=== PATIENT | female | born 1990 | race Hispanic/Latino ===

== ENCOUNTER 2021-01-31 03:33 | Emergency (ER) | payer SELFPAY ==
[2021-01-31] MEDS ORDERED: LORAZEPAM 1 MG TABLET ONE (04:43)
[2021-01-31 05:18] LABS: Arterial Blood Carboxyhemoglob 1.1 % (0-1.5); Blood Gas Oxyhemoglobin 92.3 % (94-97); Blood O2 Saturation 94.3 % (92-98.5)
[2021-01-31 05:50] LABS: Urine Blood Negative (Negative); Urine Glucose Negative (Negative); Urine Protein Negative (Negative); Urine Specific Gravity 1.015 (1.005-1.030); Urine pH 5.5 (5.0-7.0)
[2021-01-31 06:01] LABS: Absolute Lymphocytes (CBC) 2.5 K/uL (0.7-4.9); Basophils % 0.9 % (0-1.3); Hematocrit 39.1 % (36.0-45.0); Lymphocytes % 23.3 % (15.3-44.8); MPV 7.3 fL (7.6-11.3); RBC Red Blood Cell Count 4.76 M/uL (3.86-4.86)
[2021-01-31 06:07] LABS: Urine Specific Gravity/Preg 1.015 (1.005-1.030)
[2021-01-31 06:11] LABS: Barbiturates NEGATIVE (NEGATIVE); Benzodiazepines NEGATIVE (NEGATIVE); Cocaine NEGATIVE (NEGATIVE); METHAMPHETAM NEGATIVE (NEGATIVE); Methadone NEGATIVE (NEGATIVE); Opiates NEGATIVE (NEGATIVE); Phencyclidine NEGATIVE (NEGATIVE); THC Cannibis NEGATIVE (NEGATIVE)
[2021-01-31 06:17] LABS: ALT/SGPT 23 U/L (12-78); AST/SGOT 10 U/L (15-37); Albumin 3.8 g/dL (3.4-5.0); Alkaline Phosphatase 92 U/L (45-117); BUN Blood Urea Nitrogen 12 mg/dL (7-18); Bicarbonate 23 mmol/L (21-32); Bilirubin Total 0.4 mg/dL (0.2-1.0); Glucose Level 92 mg/dL (74-106); Potassium 3.4 mmol/L (3.5-5.1); Sodium Level 139 mmol/L (136-145); Troponin (Emerg Dept Use Only) < 0.02 ng/mL (0.0-0.045)
--- NOTE | 2021-01-31 07:13 | RAD REPORT ---
EXAM DESCRIPTION: CT - Chest For Pe Angio - 01/31/2021 6:55 am CLINICAL HISTORY: Chest pain;Dyspnea COMPARISON: Chest Single View dated 01/31/2021 TECHNIQUE: Dynamically enhanced 3 mm thick images of the chest were obtained during administration o f approximately 150mL Isovue 370 IV contrast. Coronal and oblique MIP reconstruction images were gene rated and reviewed. Exam utilizes a protocol to evaluate the pulmonary arterial tree. All CT scans are performed using dose optimization technique as appropriate and may include automated exposure control or mA/KV adjustment according to patient size. FINDINGS: No pulmonary emboli are identified. The aorta as imaged shows no acute or suspicious finding. No pericardial thickening or effusion. No focal mass or consolidation. Interstitial markings are slightly prominent 8 mild edema or infiltra te would be possible. There is some minimal posterior lung field ground-glass opacities that are favo red to be atelectasis rather than alveolar edema or infiltrate. No pleural effusion or pleural thicke she. No mediastinal or hilar suspicious masses. No chest wall masses or abnormal axillary lymphadenopathy. IMPRESSION: No pulmonary emboli identified. No focal lung parenchymal process identified.Prominence of the interstitial pattern could indicate a mild interstitial edema or infiltrate. Posterior lung field airspace opacities are favored to be atelectasis rather than edema or infiltrate .
--- NOTE | 2021-01-31 07:14 | RAD REPORT ---
EXAM DESCRIPTION: RAD - Chest Single View - 01/31/2021 4:15 am CLINICAL HISTORY: CHEST PAIN COMPARISON: November 2016 TECHNIQUE: AP portable chest image was obtained 01/31/2021 4:15 am . FINDINGS: Lung volumes are very low accentuating the baseline pattern. A mild edema or interstitial infiltrate could be masked. No focal mass or consolidation identifiable. Heart and vasculature are no rmal. No measurable pleural effusion and no pneumothorax. No acute bony abnormality seen. No acute ao rtic findings suspected. IMPRESSION: No acute cardiopulmonary process. Low lung volumes could mask a mild interstitial edema or infiltrate.
--- NOTE | 2021-01-31 07:58 | EKG ---
Test Date: 2021-01-31 Test Time: 04:18:45 Sandblast Or Shotblast Equipment Tender: ABBEY MEASUREMENT RESULTS: Intervals: Rate: 86 [place]: 122 QRSD: 82 QT: 364 QTc: 435 [place]: P: 13 [place]: 122 QRS: 57 T: 35 INTERPRETIVE STATEMENTS: Normal sinus rhythm Normal ECG Compared to ECG 12/05/2016 16:18:02 No significant changes Electronically Signed On 01-31-21 07:57:29 CDT by Shalom Carmen
[2021-01-31] MEDS ORDERED: POTASSIUM 25 MEQ EFFERV TAB ONE (08:13)
--- NOTE | 2021-01-31 17:55 | ER ---
Nurse's Notes [facility] Name: Gilda Berman Age: 30 yrs Sex: Female : 1990 Arrival Date: 01/31/2021 Time: 03:38 Bed 8 Private MD: Tom North R Diagnosis: Adjustment disorder with anxiety;Hyperventilation Presentation: 01/31 04:06 Chief complaint: Patient states: was sitting on couch and then started having an em anxiety attack that started at 0300, reports chest pain, arm and leg numbness, and difficulty breathing, hx of anxiety. Coronavirus screen: Client denies travel out of the [place] in the last 14 days. Ebola Screen: Patient negative for fever greater than or equal to 101.5 degrees Fahrenheit, and additional compatible Ebola Virus Disease symptoms Patient denies exposure to infectious person. Patient denies travel to an Ebola-affected area in the 21 days before illness onset. No symptoms or risks identified at this time. Initial Sepsis Screen: Does the patient meet any 2 criteria? HR > 90 bpm. No. Patient's initial sepsis screen is negative. Does the patient have a suspected source of infection? No. Patient's initial sepsis screen is negative. Risk Assessment: Do you want to hurt yourself or someone else? Patient reports no desire to harm self or others. Onset of symptoms was January 31, 2021. 04:06 Method Of Arrival: Wheelchair em 04:06 Acuity: KVNG 3 em Historical: - Allergies: 04:07 No Known Allergies; em - PMHx: 04:07 Migraines; em - PSHx: 04:07 section; Cholecystectomy; em - Immunization history:: Adult Immunizations up to date. - Social history:: Smoking status: Patient denies any tobacco usage or history of. - Family history:: not pertinent. Screenin:33 Abuse screen: Denies threats or abuse. Nutritional screening: No deficits noted. ea Tuberculosis screening: No symptoms or risk factors identified. Fall Risk None identified. Assessment: 04:35 General: Appears uncomfortable, Behavior is anxious, restless. Pain: Complains of pain ea in chest Pain does not radiate. Neuro: Level of Consciousness is awake, alert, obeys commands, Oriented to person, place, time. Cardiovascular: Patient's skin is warm and dry. Respiratory: Airway is patent Respiratory effort is even, unlabored, Respiratory pattern is regular, symmetrical. Derm: Skin is pink, warm \T\ dry. 06:27 Pain: Pain began suddenly. bs2 08:03 Reassessment: Patient appears in no apparent distress at this time. No changes from sv previously documented assessment. Patient and/or family updated on plan of care and expected duration. Pain level reassessed. Patient is alert, oriented x 3, equal unlabored respirations, skin warm/dry/pink. Vital Signs: 04:06 BP 141 / 104; Pulse 93; Resp 22; Temp 98.0; Pulse Ox 99% on R/A; Weight 81.65 kg; em Height 5 ft. 0 in. (152.40 cm); 05:00 BP 110 / 81; Pulse 81; Resp 18; Pulse Ox 98% on R/A; mt 07:38 BP 106 / 73; Pulse 85; Resp 16; Pulse Ox 97% on R/A; mt 04:06 Body Mass Index 35.15 (81.65 kg, 152.40 cm) em ED Course: 03:38 Patient arrived in ED. es 03:39 Tom North MD is Private Physician. es 04:02 Ted Calderon MD is Attending Physician. bette 04:06 Orin Chapin, RN is Primary Nurse. bs2 04:07 Triage completed. em 04:07 Arm band placed on. em 04:14 Chest Single View XRAY In Process Unspecified. EDMS 04:36 Patient has correct armband on for positive identification. Bed in low position. Call ea light in reach. secured entrance monitor on. Pulse ox on. 05:04 Les Wade MD is Referral Physician. bette 05:40 Inserted saline lock: 22 gauge in right antecubital area, using aseptic technique. ds4 Blood collected. 05:52 UDS Sent. ds4 06:15 Ted Dorsey PA is PHCP. cp 06:27 Patient maintains SpO2 saturation greater than 95% on room air. bs2 06:27 No provider procedures requiring assistance completed. bs2 06:53 Primary Nurse role handed off by Orin Chapin, RN mw2 06:55 CT Chest For PE Angio In Process Unspecified. EDMS 07:10 Morelia Mejia, URIAH is Primary Nurse. ph 07:36 Les Wade MD is Referral Physician. cp 07:48 CBC with Diff Sent. sv 07:48 Comprehensive Metabolic Panel Sent. sv 07:48 Troponin (emerg Dept Use Only) Sent. sv 08:02 IV discontinued, intact, bleeding controlled, No redness/swelling at site. Pressure sv dressing applied. Administered Medications: 04:30 Drug: Ativan (LORazepam) 2 mg Route: PO; bs2 08:02 Drug: Potassium Effervescent Tablet 50 mEq Route: PO; sv 08:02 Follow up: Response: Medication administered at discharge. sv Outcome: 05:04 Discharge ordered by MD. [facility] 07:36 Discharge ordered by MD. cp 08:02 Discharged to home ambulatory, with family. sv 08:02 Condition: stable 08:02 Discharge instructions given to patient, Instructed on discharge instructions, follow up and referral plans. medication usage, Demonstrated understanding of instructions, follow-up care, medications, Prescriptions given X 1. 08:03 Patient left the ED. sv Signatures: Dispatcher [employer] Rosita Jaquez, RN Ted Starr MD MD cha Salyer, Edna es Munoz, Edgar RN RN John Rowe ds4 Morelai Mejia RN Ted Gaitan ph, Connie Ruiz cp, mt, Elena RN Pamela Liocna ea 2 Orin Chapin RN RN bs2
--- NOTE | 2021-01-31 17:56 | EDPHYS ---
Physician Documentation [facility] Name: Gilda Berman Age: 30 yrs Sex: Female : 1990 Arrival Date: 01/31/2021 Time: 03:38 Bed 8 Private MD: Tom North R ED Physician Ted Calderon HPI: 01/31 04:12 This 30 yrs old Female presents to ER via Wheelchair with complaints of [facility] Anxiety, Chest Pain, Numbness, OF LEGS, Breathing Difficulty. 04:12 The patient or guardian reports chest pain that is located primarily in the anterior [facility] chest wall, bilaterally. The pain does not radiate. Associated signs and symptoms: The patient has no apparent associated signs or symptoms. The chest pain is described as aching. Duration: The patient or guardian reports a single episode, that is still ongoing. Modifying factors: The symptoms are alleviated by nothing. the symptoms are aggravated by nothing. Severity of pain: At its worst the pain was mild in the emergency department the pain is unchanged. The patient has experienced similar episodes in the past, a few times. Historical: - Allergies: 04:07 No Known Allergies; em - PMHx: 04:07 Migraines; em - PSHx: 04:07 section; Cholecystectomy; em - Immunization history:: Adult Immunizations up to date. - Social history:: Smoking status: Patient denies any tobacco usage or history of. - Family history:: not pertinent. ROS: 04:12 Constitutional: Negative for fever, chills, and weight loss, Eyes: Negative for injury, bette pain, redness, and discharge, ENT: Negative for injury, pain, and discharge, Neck: Negative for injury, pain, and swelling, Cardiovascular: Negative for chest pain, palpitations, and edema, Respiratory: Negative for shortness of breath, cough, wheezing, and pleuritic chest pain, Abdomen/GI: Negative for abdominal pain, nausea, vomiting, diarrhea, and constipation, Back: Negative for injury and pain, : Negative for injury, bleeding, discharge, and swelling, MS/Extremity: Negative for injury and deformity, Skin: Negative for injury, rash, and discoloration, Neuro: Negative for headache, weakness, numbness, tingling, and seizure, Allergy/Immunology: Negative for hives, rash, and allergies, Endocrine: Negative for neck swelling, polydipsia, polyuria, polyphagia, and marked weight changes, Hematologic/Lymphatic: Negative for swollen nodes, abnormal bleeding, and unusual bruising. 04:12 Psych: Positive for anxiety. Exam: 04:12 Constitutional: This is a well developed, well nourished patient who is awake, alert, bette and in no acute distress. Head/Face: Normocephalic, atraumatic. Eyes: Pupils equal round and reactive to light, extra-ocular motions intact. Lids and lashes normal. Conjunctiva and sclera are non-icteric and not injected. Cornea within normal limits. Periorbital areas with no swelling, redness, or edema. ENT: Nares patent. No nasal discharge, no septal abnormalities noted. Tympanic membranes are normal and external auditory canals are clear. Oropharynx with no redness, swelling, or masses, exudates, or evidence of obstruction, uvula midline. Mucous membranes moist. Neck: Trachea midline, no thyromegaly or masses palpated, and no cervical lymphadenopathy. Supple, full range of motion without nuchal rigidity, or vertebral point tenderness. No Meningismus. Chest/axilla: Normal chest wall appearance and motion. Nontender with no deformity. No lesions are appreciated. Cardiovascular: Regular rate and rhythm with a normal S1 and S2. No gallops, murmurs, or rubs. Normal PMI, no JVD. No pulse deficits. Respiratory: Lungs have equal breath sounds bilaterally, clear to auscultation and percussion. No rales, rhonchi or wheezes noted. No increased work of breathing, no retractions or nasal flaring. Abdomen/GI: Soft, non-tender, with normal bowel sounds. No distension or tympany. No guarding or rebound. No evidence of tenderness throughout. Back: No spinal tenderness. No costovertebral tenderness. Full range of motion. Skin: Warm, dry with normal turgor. Normal color with no rashes, no lesions, and no evidence of cellulitis. MS/ Extremity: Pulses equal, no cyanosis. Neurovascular intact. Full, normal range of motion. Neuro: Awake and alert, GCS 15, oriented to person, place, time, and situation. Cranial nerves II-XII grossly intact. Motor strength 5/5 in all extremities. Sensory grossly intact. Cerebellar exam normal. Normal gait. Psych: Awake, alert, with orientation to person, place and time. Behavior, mood, and affect are within normal limits. 04:12 Musculoskeletal/extremity: Extremities: all appear grossly normal, with no appreciated pain with palpation, ROM: no acute changes, intact in all extremities, Circulation is intact in all extremities. Sensation intact. Compartment Syndrome exam of affected extremity: is normal. DVT Exam: No signs of deep vein thrombosis. no pain, no swelling, no tenderness, negative Homans' sign noted on exam, no appreciated bluish discoloration, no erythema, no increased warmth. 04:19 ECG was reviewed by the Attending Physician. bette Vital Signs: 04:06 BP 141 / 104; Pulse 93; Resp 22; Temp 98.0; Pulse Ox 99% on R/A; Weight 81.65 kg; em Height 5 ft. 0 in. (152.40 cm); 05:00 BP 110 / 81; Pulse 81; Resp 18; Pulse Ox 98% on R/A; mt 07:38 BP 106 / 73; Pulse 85; Resp 16; Pulse Ox 97% on R/A; mt 04:06 Body Mass Index 35.15 (81.65 kg, 152.40 cm) em MDM: 04:03 Patient medically screened. bette 04:20 Differential diagnosis: abnormal EKG, acute myocardial infarction, anxiety, chest wall bette pain, cholecystitis, Cholelithiasis costochondritis, esophagitis, gastritis, hiatal hernia, myocarditis, pneumonia, pulmonary embolus, unstable angina. HEART Score: Total Score = 0. The patient's deep vein thrombosis risk score was calculated as follows: Total Score: 0. This patient was found to be at low risk for a deep vein thrombosis by using the Well's assessment criteria. The patient's pulmonary embolism risk score was calculated as follows: Total Score: 0-2 points. This patient was found to be at low risk for a pulmonary embolism by using the Well's assessment criteria. LEOBARDO Risk Score: TOTAL SCORE = 0. Data reviewed: vital signs, nurses notes, lab test result(s), EKG, radiologic studies, plain films. Data interpreted: night monitor: rate is 93 beats/min, rhythm is regular, Pulse oximetry: on room air. Test interpretation: by ED physician or midlevel provider: ECG, plain radiologic studies. Counseling: I had a detailed discussion with the patient and/or guardian regarding: the historical points, exam findings, and any diagnostic results supporting the discharge/admit diagnosis, the presence of at least one elevated blood pressure reading (>120/80) during this emergency department visit, lab results, radiology results, the need for outpatient follow up, for definitive care, a family practitioner, a psychiatrist. 01/31 04:03 Order name: UDS; Complete Time: 06:35 [facility] 01/31 04:24 Order name: ABG; Complete Time: 05:40 [facility] 01/31 05:22 Order name: Troponin (emerg Dept Use Only) [facility] 01/31 05:22 Order name: CBC with Diff [facility] 01/31 05:22 Order name: Comprehensive Metabolic Panel [facility] 01/31 05:23 Order name: Troponin (Emerg Dept Use Only); Complete Time: 06:35 [facility] 01/31 04:03 Order name: Chest Single View XRAY; Complete Time: 07:20 [facility] 01/31 05:22 Order name: CT Chest For PE Angio; Complete Time: 07:20 [facility] 01/31 05:23 Order name: Comprehensive Metabolic Panel; Complete Time: 06:35 [facility] 01/31 06:35 Interpretation: Normal except: K 3.4; CL 108; GFR 86; AST 10; GLOB 4.2; A/G 0.9. cp 01/31 05:23 Order name: CBC with Automated Diff; Complete Time: 06:35 [facility] 01/31 06:35 Interpretation: Normal except: MCV 82.2; MCH 27.9; MPV 7.3. cp 01/31 05:50 Order name: Urine Dipstick-Ancillary; Complete Time: 05:55 [facility] 01/31 05:52 Order name: Urine --Ancillary (enter results); Complete Time: 06:35 ds4 01/31 04:03 Order name: EKG; Complete Time: 04:04 [facility] 01/31 04:03 Order name: EKG - Nurse/Tech; Complete Time: 05:51 [facility] 01/31 04:03 Order name: Urine Dipstick-Ancillary (obtain specimen); Complete Time: 05:51 [facility] 01/31 04:03 Order name: Urine Test (obtain specimen); Complete Time: 05:51 [facility] 01/31 07:25 Order name: Vital Signs: please update; Complete Time: 07:38 cp EC:19 Rate is 86 beats/min. Rhythm is regular. QRS [place] is Normal. [place] interval is normal. QRS bette interval is normal. QT interval is normal. No Q waves. T waves are Normal. No ST changes noted. Clinical impression: NSR w/ Non-specific ST/T Changes and No evidence of ischemia. Interpreted by me. Reviewed by me. Administered Medications: 04:30 Drug: Ativan (LORazepam) 2 mg Route: PO; bs2 08:02 Drug: Potassium Effervescent Tablet 50 mEq Route: PO; sv 08:02 Follow up: Response: Medication administered at discharge. sv Disposition Summary: 01/31/21 07:36 Discharge Ordered Location: Home(01/31/21 07:36) cp Problem: new(01/31/21 07:36) cp Symptoms: have improved(01/31/21 07:36) cp Condition: Stable(01/31/21 07:36) cp Diagnosis - Adjustment disorder with anxiety(01/31/21 07:36) cp - Hyperventilation(01/31/21 07:36) cp Followup: bette - With: Private Physician - When: 2 - 3 days - Reason: Recheck today's complaints, Continuance of care, Re-evaluation by your physician Followup: bette - With: - When: 2 - 3 days - Reason: Recheck today's complaints, Re-evaluation by your physician Discharge Instructions: - Discharge Summary Sheet bette - Adjustment Disorder, Adult bette - Panic Attack bette - Hyperventilation bette - Managing Anxiety, Adult bette Forms: - Medication Reconciliation Form cp - Thank You Letter cp - Antibiotic Education cp - Prescription Opioid Use cp Prescriptions: - Hydroxyzine HCl 25 mg Oral Tablet - take 1 tablet by ORAL route every 6 hours As needed; 30 tablet; Refills: 0, bette Product Selection Permitted Signatures: Dispatcher [employer] Rosita Jaquez RN RN sv Anderson, Corey, MD MD cha Munoz, Edgar, RN RN em Page, Corey, PA PA cp Smith, Bridget RN RN bs2 Corrections: (The following items were deleted from the chart) 05:24 05:04 Home bette bette 05:24 05:04 new bette bette 05:24 05:04 have improved bette bette 05:24 05:04 Stable bette bette 05:24 05:04 Adjustment disorder with anxiety bette bette 05:24 05:04 Hyperventilation bette amos
[2021-02-01 19:36] VITALS: TEMP 98
[2021-02-01 19:39] VITALS: BP 106/73; O2SAT 97
== END 2021-01-31 08:03 | disposition home or self-care (01) ==
LOC: ER 03:33
DX: F43.22 Adjustment disorder with anxiety (principal); R06.4 Hyperventilation; Z20.822 Contact with and (suspected) exposure to COVID-19
CPT/HCPCS: 36415; 71045; 71275; 80053; 80307; 81003; 81025; 82805; 84484; 85025; 93005; Q9967; U0003

== ENCOUNTER 2023-03-01 18:09 | Emergency (ER) | payer SELFPAY ==
--- OUTSIDE RECORDS SUMMARY | 2023-03-01 18:18 | XMS REPORT | Continuity of Care Document ---
:1990 Author Organization [facility] t Address [address] [place] [address] [place] [id number] Care Team Providers Name Role Phone PCP, PATIENT DOES NOT HAVE A Primary Care Physician Unavaila Ntae Vo Attending Clinician ROSY CRANDALL Attending Clinician Unavailable Rosy Sweet Attending Clinician Qiana Handley MD Attending Clinician Doctor Unassigned, [place] Attending Clinician Unavailable VISIT, NURSE TMO Attending Clinician Unavailable Payers Payer Name Policy Type Policy Number Effective Date Expiration Date S [facility] - [id number] 2021 00:00:00 OUT OF STATE Problems Condition Condition Condition Status Onset Resolution Last Treating Co mments Source Name Details Category Date Date Treatment Clinician Date Morbid Morbid Problem Active 2022-11-16 Mem oridillan obesity obesity 01:29:27 l (disorder) (disorder) Brian velasco Active [facility] No known No known Disease Unive active active ity of problems problems [facility] Patient Patient Problem Resolve 2006-072022-03-01 2022-03-01 Memoria currently currently d 08-02 22:32:36 22:32:36 l 00:00: Evelio will (finding) (finding) 00 Resolved 06/02/2007 Problem 03/01/2022 [facility] History of Past Illness Condition Condition Condition Status Onset Resolution Last Treating Co mments Source Name Details Category Date Date Treatment Clinician Date Abnormal Abnormal Diagnosis 2022-11-16 2022-11-16 Memoria uterine uterine 11-13 01:29:27 01:29:27 l bleeding bleeding 18:59: Evelio n (disorder) (disorder) 00 3 Diagnosis 11/16/2022 [facility] front desk person C Encounter Problem 2022-02-16 2022-02-16 Memoria for Encounter 02-13 03:12:30 03:12:30 l gynecologi for 18:46: Evelio will bernadette gynecologi 00 examinatio bernadette n examinatio (general) n (routine) (general) without (routine) abnormal without findings abnormal findings 02/13/2022 Medical Group Abnormal Abnormal Problem 2021-10-27 2021-10-27 Memoria uterine uterine 10-24 03:00:02 03:00:02 l and and 18:19: Mike vaginal vaginal 00 bleeding, bleeding, unspecifie unspecifie d d 10/24/2021 10/27/2021 [facility] Pelvic and Pelvic Problem 2018-2018-11-29 2018-11-29 Memoria perineal and 5 22:11:09 22:11:09 l pain perineal 15:39: [place] pain 00 11/27/2018 9 [facility] Allergies, Adverse Reactions, Alerts Allergy Allergy Status Severity Reaction(s) Onset Inactive Treating Comm ents Source Name Type Date Date Clinician NO KNOWN Drug Active Univers ALLERGIE Class ity of S [facility] Social History Social Habit Start Date Stop Date Quantity Comments Source Exposure to Not sure [facility] SARS-CoV-2 [facility] (event) Branch Tobacco use and 2021-05-22 2021-05-22 Never used Universit y of exposure 00:00:00 00:00:00 [facility] Alcohol intake 2021-05-22 2021-05-22 Ex-drinker University 00:00:00 00:00:00 (finding) [facility] Sex Assigned At [birth year] Universit y of 00:00:00 00:00:00 [facility] Smoking Status Start Date Stop Date Source Unknown if ever smoked [facility] Tobacco smoking status [facility] Medications Ordered Filled Start Stop Current Ordering Indication Dosage Frequency Signature Comments Components Source Medication Medication Date Date Medication? Clinician (SIG) Name Name Ella Yes 0.35 mg = Mem oria 0.35 mg 5-09 1 tab, PO, l oral tablet 19:30: Daily, # He rmann 00 90 tab, 3 Refill(s), Pharmacy: [facility] Pharm[facility] [place], 149.86, cm, 02/13/22 13:46:00 CDT, Height, 79.545, kg, 02/13/22 13:46:00 CDT, Weight busPIRone Yes 0 Memoria 10 mg oral 5-08 Refill(s) l tablet 18:49: [place] 00 amitriptyli Yes 0 Memori a ne 25 mg 5-08 Refill(s) l oral tablet 18:49: Evelio n 00 propranolol Yes 0 Memori a 40 mg oral 5-08 Refill(s) l tablet 18:49: [place] 00 Slynd 4 mg 2021-1 Yes 4 mg, PO, Me moria oral tablet 1-09 Daily, # l 14:37: 84 tab, 3 Mike 00 Refill(s), Pharmacy: [facility] Pharmacy, 149.86, cm, 02/13/22 13:46:00 CDT, Height, 79.545, kg, 02/13/22 13:46:00 CDT, Weight Slynd 4 mg 2021-0 Yes 4 mg, PO, Me moria oral tablet 8-09 Daily, # l 18:59: 84 tab, 3 [place] 00 Refill(s), Pharmacy: [facility] Pharmacy, 149.86, cm, 02/13/22 13:46:00 CDT, Height, 79.545, kg, 02/13/22 13:46:00 CDT, Weight Sronyx oral 2021-0 Yes 1 tab, PO, Memoria tablet 4-19 Daily, # l 18:31: 84 tab, 3 [place] 00 Refill(s), Pharmacy: [facility] Pharm[facility] [place], 149.86, cm, 10/24/21 13:08:00 CDT, Height, 80, kg, 10/24/21 13:08:00 CDT, Weight tyesha 2020-07- No [id number] 5mL Take 5 mL Univers mine-pseudo 07-22 by mouth 4 i ty of ephedrine-D 00:00: 05:59 (four) Abraham as M (BROMFED 00 :00 times Medical DM) 2-30-10 daily as Bran ch mg/5 mL needed for syrup Cold symptoms for up to 10 days. Vital Signs Vital Name Observation Time Observation Value Comments Source Systolic blood 2021-05-22 20:05:00 109 mm[Hg] Univer sity of [facility] Diastolic blood 2021-05-22 20:05:00 74 mm[Hg] Unive rsity [facility] Heart rate 2021-05-22 20:05:00 86 /min [facility] Body temperature 2021-05-22 20:05:00 36.89 Arielle [facility] rate 2021-05-22 20:05:00 19 /min [facility] Body height 2021-05-22 20:05:00 149.9 cm [facility] Body weight 2021-05-22 20:05:00 81.647 kg [facility] BMI 2021-05-22 20:05:00 36.36 kg/m2 [facility] Oxygen saturation in 2021-05-22 20:05:00 99 /min [facility] Arterial blood by [facility] Pulse oximetry [facility] Heart Rate 2022-02-13 18:46:00 [facility] Systolic (mm Hg) 2022-02-13 18:46:00 Howardkristy Mckeon Diastolic (mm Hg) 2022-02-13 18:46:00 [facility] orial [place] Height 2022-02-13 18:46:00 149.86 cm [facility] Weight 2022-02-13 18:46:00 [facility] BMI Calculated 2022-02-13 18:46:00 Amy al [place] Heart Rate 2021-10-24 18:08:00 [facility] Height 2021-10-24 18:08:00 149.86 cm [facility] Mike Weight 2021-10-24 18:08:00 [facility] [place] BMI Calculated 2021-10-24 18:08:00 Amy Hooks BMI Calculated 2018-11-27 15:30:00 Pritihumberto Hooks Weight 2018-11-27 15:30:00 Nataliia Mckeon Heart Rate 2018-11-27 15:30:00 Nataliia [place] Systolic (mm Hg) 2018-11-27 15:30:00 Howard Floresann Diastolic (mm Hg) 2018-11-27 15:30:00 [facility] orial [place] Height 2018-11-27 15:30:00 149.86 cm [facility] Mike Procedures Procedure Date / Time Performing Clinician Source Performed Liquid based cervical 2022-02-13 05:00:00 Amy lionel Mike cytology screening ASSIGNMENT OF BENEFITS 2021-05-22 19:47:54 Doctor Unassigned, Un [facility] Bilateral tubal ligation 2015-07-08 00:00:00 [facility] orial [place] Caesarean section 2015-07-08 00:00:00 [facility] ermann Cholecystectomy [facility] Encounters Start End Encounter Admission Attending Care Care Encounter Source Date/Time Date/Time Type Type Clinicians Facility Department ID 2022-11-13 2022-11-13 Ambulatory IE [facility] front desk person [id number] Memoria 18:45:00 18:45:00 Pre-Reg [facility] 07 herminia FloresMike 2022-11-13 2022-11-13 Ambulatory IE [facility] front desk person [id number] Memoria 18:30:00 18:30:00 Pre-Reg [facility] 06 herminia Mckeon 2022-11-13 2022-11-13 Outpatient IE IE [id number] Memoria 13:45:00 13:45:00 08 herminia Mckeon 2022-11-13 2022-11-13 Outpatient IE IE [id number] Memoria 13:45:00 13:45:00 07 herminia Mckeon 2022-11-13 2022-11-13 Outpatient Mateo [facility] [id number] 13:45:00 13:45:00 Nate 07 Robledo 2022-11-13 2022-11-13 Outpatient MHIE IE [id number] Memoria 13:30:00 13:30:00 06 herminia Mckeon 2022-11-13 2022-11-13 Outpatient Vine, [facility] MG [id number] 13:30:00 13:30:00 Nathanaelryporsha Ciara RaglandRobledo 2022-07-12 2022-07-12 Ambulatory MHIE MG front desk person [id number] Memoria 19:00:00 19:00:00 Pre-Reg [facility] 05 herminia Mckeon 2022-07-12 2022-07-12 Outpatient MHIE MHIE [id number] Memoria 13:00:00 13:00:00 05 herminia Mckeon 2022-07-12 2022-07-12 Outpatient Vine, [facility] MG [id number] 13:00:00 13:00:00 Nathanaelryporsha Winter RaglandRobledo 2022-02-26 2022-02-27 Between nullFlavo MG front desk person [id number] Memoria 16:27:20 16:27:20 Visit r [facility] 05 herminia Mckeon 2022-02-26 2022-02-27 Outpatient [facility] MG [id number] 11:27:20 11:27:20 05 2022-02-13 2022-02-14 Outpatient nullFlavo MG front desk person [id number] Memoria 18:45:00 04:59:59 r [facility] 04 herminia Mckeon 2022-02-13 2022-02-13 Outpatient Vine, MG MG [id number] 13:45:00 23:59:59 Nathanaelryporsha Madhav Robledo 2022-02-13 2022-02-13 Outpatient MHIE IE [id number] Memoria 13:45:00 13:45:00 04 herminia Mckeon 2022-01-22 2022-01-23 Between nullFlavo MG front desk person [id number] Memoria 22:29:19 22:29:19 Visit r [facility] 04 herminia Mckeon 2022-01-22 2022-01-23 Outpatient [facility] MG [id number] 17:29:19 17:29:19 04 2021-10-30 2021-10-31 Between nullFlavo [facility] front desk person [id number] Memoria 15:42:56 15:42:56 Visit r [facility] 03 herminia Mike 2021-10-30 2021-10-31 Outpatient [facility] MG [id number] 10:42:56 10:42:56 03 2021-10-24 2021-10-25 Outpatient nullFlavo MG front desk person [id number] Memoria 18:30:00 04:59:59 r [facility] 03 herminia Mckeon 2021-10-24 2021-10-24 Outpatient Mateo, MG MG [id number] 13:30:00 23:59:59 Gerilynn 03 Robledo 2021-10-24 2021-10-24 Outpatient MHIE IE [id number] Memoria 13:30:00 13:30:00 03 herminia Mckeon 2021-05-22 2021-05-22 [facility] [id number] Univers 14:00:00 15:08:20 OMAYEMI ity of [facility] 2021-05-22 2021-05-22 [facility] [id number] Univers 13:49:03 15:08:20 Care [facility] [id number] ity of [place] [id number] Abraham as KAMALJIT?BLEA [id number] [address] MEDICAL OFFICE BUILDING 2021-05-22 2021-05-22 Orders Doctor JUSTINE [id number] Univers 00:00:00 00:00:00 Only Unassigned, JENISE [id number] ity of [place] [facility] [id number] Abraham as [id number] [address] 2018-12-08 2018-12-08 Ambulatory nullFlavo MG PHOTOGRAPHY TEACHER 5 [id number] Memoria 19:00:00 19:00:00 Pre-Reg r [facility] 02 herminia Mckeon 2018-12-08 2018-12-08 Outpatient MHIE IE [id number] Memoria 14:00:00 14:00:00 02 herminia Mckeon 2018-12-08 2018-12-08 Outpatient VISIT, [facility] [id number] 14:00:00 14:00:00 NURSE TMO 02 2018-12-02 2018-12-03 Between nullFlavo [facility] PHOTOGRAPHY TEACHER [id number] Memoria 14:09:02 14:09:02 Visit r TM 02 herminia [place]Cl[place] 2018-12-02 2018-12-03 Outpatient [facility] [id number] 09:09:02 09:09:02 02 2018-11-27 2018-11-28 Outpatient nullFlavo [facility] PHOTOGRAPHY TEACHER 5 [id number] Memoria 15:15:00 04:59:59 r [facility] 01 herminia Mike 2018-11-27 2018-11-27 Outpatient Vine, [facility] [id number] 10:15:00 23:59:59 Gerisac 01 Meena 2018-11-27 2018-11-27 Outpatient [facility] [id number] Memoria 10:15:00 10:15:00 01 herminia Mike 2018-11-20 2018-11-20 Ambulatory nullFlavo [facility] PHOTOGRAPHY TEACHER 5 [id number] Memoria 18:15:00 18:15:00 Pre-Reg r [facility] 00 herminia Mike 2018-11-20 2018-11-20 Outpatient Vine, [facility] [id number] 13:15:00 13:15:00 Nate Robledo Results Test Description Test Time Test Comments Results Result Comments Source HEMATOLOGY 2021-10-24 18:35:00 Test Item Value Reference Range Interpretation Comme nts WBC X 10x3 (test code = WBC X 10x3) 8.7 3.8-10.8 [facility]UD[facility]FF1868-50-02 18:35:00 Test Item Value Reference Range Interpretation Comments RBC X 10x6 (test code = RBC X 10x6) 4.93 3.80-5.10 [facility] CenterFdidaycYOYSDIVIKH0513-91-41 18:35:00 Test Item Value Reference Range Interpretation Comments Hgb (test code = Hgb) 13.0 11.7-15.5 [facility] CenterLacbeojWFULQKTJDC2219-25-62 18:35:00 Test Item Value Reference Range Interpretation Comments Hct (test code = Hct) 40.4 35.0-45.0 [place] 130082-04-19 18:35:00 Test Item Value Reference Range Interpretation Comments MCV (test code = MCV) 81.9 80.0-100.0 [facility] CenterPjhzepaTJSDPFZMSZ2748-19-79 18:35:00 Test Item Value Reference Range Interpretation Comments MCH (test code = MCH) 26.4 pg 27.0-33.0 [facility] CenterKltohqaPVTFKXNCRO3250-91-52 18:35:00 Test Item Value Reference Range Interpretation Comments MCHC (test code = MCHC) 32.2 32.0-36.0 [place] 130082-04-19 18:35:00 Test Item Value Reference Range Interpretation Comments RDW (test code = RDW) 13.5 11.0-15.0 [place] 130082-04-19 18:35:00 Test Item Value Reference Range Interpretation Comments Platelet (test code = Platelet) 360 140-400 [facility] CenterXdycycvOKWBUAZOEL7009-84-07 18:35:00 Test Item Value Reference Range Interpretation Comments MPV (test code = MPV) 9.9 7.5-12.5 [place] 1300[address]-04-19 18:35:00 Test Item Value Reference Range Interpretation Comments Neutrophils # (test code = Neutrophils 5585 1163-9603 #) [facility] CenterQocdywuSZEFJVUNOY0589-50-91 18:35:00 Test Item Value Reference Range Interpretation Comments Lymphocytes # (test code = Lymphocytes 2549 850-3900 #) [facility] Cent[id number] 18:35:00 Test Item Value Reference Range Interpretation Comments Monocytes # (test code = Monocytes #) 426 200-950 [facility] CenterKvugytiYPGNIMKIPQ2401-53-34 18:35:00 Test Item Value Reference Range Interpretation Comments Eosinophils # (test code = Eosinophils 78 15-500 #) [facility] C[id number] 18:35:00 Test Item Value Reference Range Interpretation Comments Basophils # (test code 61 See_Comment [Aut omated message] The = Basophils #) system which generated this result tra nsmitted reference range : <=200. The reference r mando was not used to int erpret this result as normal/abnormal . [facility] CenterJluhmnfDQRGJWGBON9384-70-09 18:35:00 Test Item Value Reference Range Interpretation Comments Segs (test code = Segs) 64.2 [facility] CenterEfsymamHIHGFQSVPG2050-20-32 18:35:00 Test Item Value Reference Range Interpretation Comments Lymphocytes (test code = Lymphocytes) 29.3 [facility] CenterUbfpgtjPTWQAUXMSP6940-21-73 18:35:00 Test Item Value Reference Range Interpretation Comments Monocytes (test code = Monocytes) 4.9 [place] 1300[address]-04-19 18:35:00 Test Item Value Reference Range Interpretation Comments Eosinophils (test code = Eosinophils) 0.9 [place] [id number] 18:35:00 Test Item Value Reference Range Interpretation Comments Basophils (test code = Basophils) 0.7 [facility]
[2023-03-01] MEDS ORDERED: LORazepam 2 MG/ML VIAL ONE (18:33)
[2023-03-01] MEDS ORDERED: NA CHLORIDE 0.9% 1,000 ML ONE ×2 (18:45→20:49)
[2023-03-01 18:47] LABS: Absolute Lymphocytes (CBC) 4.9 K/uL (0.7-4.9); Hematocrit 37.2 % (36.0-45.0); Lymphocytes % 44.9 % (15.3-44.8); MCV 74.5 fL (80-100); MPV 7.8 fL (7.6-11.3); Platelets 434 thou/uL (152-406)
[2023-03-01 19:00] LABS: Potassium 3.2 mEq/L (3.5-5.1); Thyroid Stimulating Hormone 2.59 uIU/mL (0.358-3.740); Troponin High Sensitivity 3.4 pg/mL (<58.9)
--- NOTE | 2023-03-01 20:07 | RAD REPORT ---
EXAM DESCRIPTION: Miladys Single View03/01/2023 7:38 pm CLINICAL HISTORY: Chest pain COMPARISON: 2021 FINDINGS: The lungs appear clear of acute infiltrate. The heart is normal size IMPRESSION: No acute abnormalities displayed
[2023-03-01 20:45] LABS: Protime INR 1.05
[2023-03-01 20:53] LABS: Barbiturates NEGATIVE (NEGATIVE); Benzodiazepines NEGATIVE (NEGATIVE); Cocaine NEGATIVE (NEGATIVE); METHAMPHETAM NEGATIVE (NEGATIVE); Methadone NEGATIVE (NEGATIVE); Opiates NEGATIVE (NEGATIVE); Phencyclidine NEGATIVE (NEGATIVE); THC Cannibis NEGATIVE (NEGATIVE)
[2023-03-01 21:05] LABS: ALT/SGPT 17 U/L (13-56); AST/SGOT 8 U/L (15-37); Albumin 3.3 g/dL (3.4-5.0); Alkaline Phosphatase 78 U/L (45-117); Bilirubin Total 0.3 mg/dL (0.2-1.0); Protein, Total 6.8 g/dL (6.4-8.2)
[2023-03-01 21:07] LABS: Bilirubin Direct < 0.1 mg/dL (0-0.2); Bilirubin Indirect, Calculated ND mg/dL (0.2-0.8)
--- NOTE | 2023-03-01 21:25 | EDPHYS ---
Physician Documentation [facility] Name: Gilda Berman Age: 32 yrs Sex: Female : 1990 Arrival Date: 03/01/2023 Time: 18:09 Bed 5 Private MD: ED Physician Rupesh Romano HPI: 03/01 23:13 This 32 yrs old Female presents to ER via Wheelchair with complaints of kb Anxiety. 23:13 The patient presents to the emergency department with anxiety. Onset: The kb symptoms/episode began/occurred today. Past psychiatric history: Prior diagnosis: anxiety. Associated signs and symptoms: Pertinent positives; anxiety. Severity of symptoms: At their worst the symptoms were moderate in the emergency department the symptoms are unchanged. The patient has experienced similar episodes in the past. The patient has not recently seen a physician. Mother states pt is a single mother of 4, planning a qu[place]enera, and today is the anniversary of her brother's so she is under a lot of stress. 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 States pt has had similar episodes in the past and is not currently medicated for anxiety. . Historical: - Allergies: 18:42 No Known Allergies; iw - PMHx: 18:16 Migraines; Anxiety; cm10 - PSHx: 18:16 section; Cholecystectomy; cm10 - Immunization history:: Adult Immunizations unknown. - Social history:: Smoking status: Patient denies any tobacco usage or history of. ROS: 23:11 Constitutional: Negative for fever, chills, and weight loss. kb 23:11 Psych: Positive for anxiety. 23:11 All other systems are negative. Exam: 23:11 Head/Face: Normocephalic, atraumatic. Cardiovascular: Regular rate and rhythm with a kb normal S1 and S2. No gallops, murmurs, or rubs. No pulse deficits. Respiratory: Respirations even and unlabored. No increased work of breathing. Talking in full sentences Abdomen/GI: Soft, non-tender. No distention Skin: Warm, dry with normal turgor. Normal color. MS/ Extremity: Pulses equal, no cyanosis. Neurovascular intact. Full, normal range of motion. Neuro: Awake and alert, GCS 15, oriented to person, place, time, and situation. Moves all extremities. Normal gait. 23:11 Constitutional: The patient appears alert, awake, anxious. 23:11 Psych: Behavior/mood is cooperative, anxious, Affect is animated, Oriented to person, place, time, Patient has no thoughts/intents to harm self or others. Judgement / Insight is normal. Vital Signs: 18:14 BP 142 / 90; Pulse 149; Resp 24; Temp 98.9; Pulse Ox 100% ; cm10 18:40 BP 131 / 91; Pulse 117; Resp 28; Pulse Ox 100% on R/A; iw 19:00 BP 117 / 82; Pulse 126; Resp 18; Pulse Ox 100% ; cm10 19:30 BP 127 / 77; Pulse 120; Resp 18; Pulse Ox 100% ; cm10 20:00 BP 129 / 89; Pulse 108; Resp 18; Pulse Ox 98% on R/A; cm10 20:30 BP 115 / 81; Pulse 110; Resp 18; Pulse Ox 99% on R/A; cm10 21:00 BP 121 / 83; Pulse 109; Resp 18; Pulse Ox 99% on R/A; cm10 MDM: 18:11 Patient medically screened. kb 21:24 ED course: Pt states she is feeling better and ready to go home. . kb 23:10 Data reviewed: vital signs, nurses notes. kb 23:12 Differential diagnosis: panic attack, PE, acute stress reaction. Historians other than valeria the Patient: Parent: mother. Counseling: I had a detailed discussion with the patient and/or guardian regarding the historical points, exam findings, and any diagnostic results supporting the discharge/admit diagnosis, lab results, radiology results, the need for outpatient follow up, a family practitioner, a psychiatrist, to return to the emergency department if symptoms worsen or persist or if there are any questions or concerns that arise at home. 03/01 18:17 Order name: Basic Metabolic Panel; Complete Time: 19:08 kb 03/01 18:17 Order name: CBC with Diff; Complete Time: 18:53 kb 03/01 18:17 Order name: D-Dimer; Complete Time: 18:53 kb 03/01 18:17 Order name: Troponin HS; Complete Time: 19:08 kb 03/01 18:17 Order name: TSH; Complete Time: 19:08 kb 03/01 20:04 Order name: Acetaminophen; Complete Time: 21:14 eh3 03/01 20:04 Order name: ETOH Level; Complete Time: 21:04 [facility] 03/01 20:04 Order name: Hepatic Function; Complete Time: 21:14 [facility] 03/01 20:04 Order name: PT-INR; Complete Time: 21: [facility] 03/01 20:04 Order name: Ptt, Activated; Complete Time: 21:04 [facility] 03/01 20:04 Order name: Salicylate; Complete Time: 21:23 [facility] 03/01 20:04 Order name: Urine Drug Screen; Complete Time: 21:04 [facility] 03/01 18:17 Order name: XRAY Chest (1 view); Complete Time: 20:08 kb 03/01 18:17 Order name: EKG; Complete Time: 18:18 kb 03/01 18:17 Order name: Cardiac monitoring; Complete Time: 19:30 kb 03/01 18:17 Order name: EKG - Nurse/Tech; Complete Time: 19:01 kb 03/01 18:17 Order name: IV Saline Lock; Complete Time: 18:31 kb 03/01 18:17 Order name: Labs collected and sent; Complete Time: 18:31 kb 03/01 18:17 Order name: O2 Per Protocol; Complete Time: 18:31 kb 03/01 18:17 Order name: O2 Sat Monitoring; Complete Time: 18:31 kb 03/01 20:04 Order name: Suicide Screening ([place]); Complete Time: 21:42 eh3 Administered Medications: 18:25 Drug: Ativan IVP 1 mg Route: IVP; Site: right antecubital; iw 19:00 Follow up: Response: No adverse reaction iw 18:37 Drug: NS 0.9% IV 1000 ml Route: IV; Rate: 1000 ml; Site: right antecubital; iw 19:54 Follow up: Response: No adverse reaction; IV Status: Completed infusion; IV Intake: cm10 1000ml 19:01 Drug: Ativan IVP 1 mg Route: IVP; Site: right antecubital; iw 19:54 Follow up: Response: No adverse reaction cm10 21:00 Drug: NS 0.9% IV 1000 ml Route: IV; Rate: 1000 ml; Site: right antecubital; cm10 21:42 Follow up: Response: No adverse reaction; IV Status: Completed infusion; IV Intake: rv 200ml Disposition Summary: 03/01/23 21:24 Discharge Ordered Location: Home kb Condition: Stable kb Diagnosis - Anxiety disorder, unspecified kb Followup: kb - With: Emergency Department - When: As needed - Reason: Worsening of condition Followup: kb - With: Private Physician - When: 2 - 3 days - Reason: Recheck today's complaints, Continuance of care, Re-evaluation by your physician Discharge Instructions: - Discharge Summary Sheet kb - Panic Attack, Xfdw-sv-Nbos kb - Managing Anxiety, Adult kb Forms: - Medication Reconciliation Form kb - Thank You Letter kb - Antibiotic Education kb - Prescription Opioid Use kb - Patient Portal Instructions kb - Leadership Thank You Letter kb Signatures: Dispatcher [employer] EDMS Hali Cummins, RECOVERY RN-C RECOVERY RN-Abadb Chela Fong, RN RN iw Zee Mejia RN RN eh3 May Valladares RN RN cm10 Blake Gaona RN rv
--- NOTE | 2023-03-01 21:25 | ER ---
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 Pt has a history of anxiety and has had a panic attack like this in the past. Coronavirus screen: Vaccine status: Patient reports receiving the 2nd dose of the covid vaccine. Ebola Screen: Patient denies travel to an Ebola-affected area in the 21 days before illness onset. No symptoms or risks identified at this time. Initial Sepsis Screen: Does the patient meet any 2 criteria? No. Patient's initial sepsis screen is negative. Does the patient have a suspected source of infection? No. Patient's initial sepsis screen is negative. Risk Assessment: Do you want to hurt yourself or someone else? Patient reports no desire to harm self or others. Onset of symptoms was March 01, 2023. 18:14 Method Of Arrival: Wheelchair cm10 18:14 Acuity: KVNG 3 cm10 Historical: - Allergies: 18:42 No Known Allergies; iw - PMHx: 18:16 Migraines; Anxiety; cm10 - PSHx: 18:16 section; Cholecystectomy; cm10 - Immunization history:: Adult Immunizations unknown. - Social history:: Smoking status: Patient denies any tobacco usage or history of. Screenin:39 [facility] ED Fall Risk Assessment (Adult) Score/Fall Risk Level 0 - 2 = Low Risk. Abuse iw screen: Denies threats or abuse. Denies injuries from another. Nutritional screening: No deficits noted. Tuberculosis screening: No symptoms or risk factors identified. Assessment: 18:25 General: Appears distressed, uncomfortable, well developed, Behavior is anxious, iw crying. Pain: Unable to use pain scale. Neuro: Level of Consciousness is awake, alert, obeys commands, Oriented to person, place, time, situation, Moves all extremities. Full function. Cardiovascular: Reports lightheadedness, Capillary refill < 3 seconds in bilateral fingers Patient's skin is warm and dry. Rhythm is sinus tachycardia. Respiratory: Respiratory effort is even, unlabored, Respiratory pattern is hyperventilation. GI: Abdomen is non-distended. Derm: Skin is intact, is healthy with good turgor. Musculoskeletal: Range of motion: intact in all extremities. 19:54 Reassessment: Pt placed on bedpan at this time. cm10 21:30 Reassessment: Patient is alert, oriented x 3, equal unlabored respirations, skin rv warm/dry/pink. Patient states feeling better. Patient states symptoms have improved. 21:42 General:. rv Vital Signs: 18:14 BP 142 / 90; Pulse 149; Resp 24; Temp 98.9; Pulse Ox 100% ; cm10 18:40 BP 131 / 91; Pulse 117; Resp 28; Pulse Ox 100% on R/A; iw 19:00 BP 117 / 82; Pulse 126; Resp 18; Pulse Ox 100% ; cm10 19:30 BP 127 / 77; Pulse 120; Resp 18; Pulse Ox 100% ; cm10 20:00 BP 129 / 89; Pulse 108; Resp 18; Pulse Ox 98% on R/A; cm10 20:30 BP 115 / 81; Pulse 110; Resp 18; Pulse Ox 99% on R/A; cm10 21:00 BP 121 / 83; Pulse 109; Resp 18; Pulse Ox 99% on R/A; cm10 ED Course: 18:10 Patient arrived in ED. mr 18:11 Hali Cummins, DORIS-C is [facility]. kb 18:11 Rupesh Romano MD is Attending Physician. kb 18:16 Triage completed. cm10 18:17 Arm band placed on Patient placed in an exam room, on a stretcher. cm10 18:23 Chela Fong, RN is Primary Nurse. iw 18:31 Inserted saline lock: 22 gauge in left antecubital area, using aseptic technique. Blood ds4 collected. 18:32 Radiology exam delayed due to was told to wait per nurse. az 19:39 XRAY Chest (1 view) In Process Unspecified. EDMS 21:44 Patient has correct armband on for positive identification. Provided Education on: N/A. cm10 21:44 No provider procedures requiring assistance completed. IV discontinued, intact, cm10 bleeding controlled, No redness/swelling at site. Pressure dressing applied. Administered Medications: 18:25 Drug: Ativan IVP 1 mg Route: IVP; Site: right antecubital; iw 19:00 Follow up: Response: No adverse reaction iw 18:37 Drug: NS 0.9% IV 1000 ml Route: IV; Rate: 1000 ml; Site: right antecubital; iw 19:54 Follow up: Response: No adverse reaction; IV Status: Completed infusion; IV Intake: cm10 1000ml 19:01 Drug: Ativan IVP 1 mg Route: IVP; Site: right antecubital; iw 19:54 Follow up: Response: No adverse reaction cm10 21:00 Drug: NS 0.9% IV 1000 ml Route: IV; Rate: 1000 ml; Site: right antecubital; cm10 21:42 Follow up: Response: No adverse reaction; IV Status: Completed infusion; IV Intake: rv 200ml Medication: 18:39 VIS not applicable for this client. iw Intake: 19:54 IV: 1000ml; Total: 1000ml. cm10 21:42 IV: 200ml; Total: 1200ml. rv Outcome: 21:24 Discharge ordered by MD. kb 21:44 Discharged to home via wheelchair, with family. cm10 21:44 Condition: good 21:44 Discharge instructions given to patient, Instructed on discharge instructions, follow up and referral plans. Demonstrated understanding of instructions, follow-up care. 21:47 Patient left the ED. cm10 Signatures: Dispatcher [employer] EDMS Hali Cummins, STABILIZING MACHINE OPERATOR-C STABILIZING MACHINE OPERATOR-Ramez LoweryPaola Chela Fong, RN RN John Murphy ds4 Blake Gaona RN RN rv Zavala, Araceli az Martinez, Clarissa, RN RN cm10 Corrections: (The following items were deleted from the chart) 18:41 18:40 Pulse 117bpm; Resp 28bpm; Pulse Ox 100% RA; iw iw
[2023-03-01 23:04] VITALS: TEMP 98.9
[2023-03-01 23:12] VITALS: O2SAT 99
[2023-03-01 23:14] VITALS: BP 121/83
--- NOTE | 2023-03-03 15:08 | EKG ---
Test Date: 2023-03-01 Test Time: 18:55:02 Trim Stencil Maker: VIN MEASUREMENT RESULTS: Intervals: Rate: 128 MI: 132 QRSD: 86 QT: 308 QTc: 449 Graham: P: 39 MI: 132 QRS: 70 T: 19 INTERPRETIVE STATEMENTS: Sinus tachycardia Otherwise normal ECG Compared to ECG 01/31/2021 04:18:45 Sinus rhythm no longer present Electronically Signed On 03-03-23 15:06:09 CDT by Mumtaz Rocha
== END 2023-03-01 21:47 | disposition home or self-care (01) ==
LOC: ER 18:09
DX: F41.9 Anxiety disorder, unspecified (principal)
CPT/HCPCS: 36415; 71045; 80048; 80076; 80143; 80179; 80307; 82077; 84443; 84484; 85025; 85379; 85610; 85730; 93005; 96361; 96374; 99284; J7030